=== PATIENT | male | born 1945 | race Caucasian/White ===

== ENCOUNTER 2018-12-08 05:52 | Day surgery (SDC) | payer OTHER ==
[~2018-12-08 05:52] MED LIST: Buffered Lidocaine 1% SYRIN* 1 ML/SYRINGE INTRADERM ONE
[2018-12-08] MEDS ORDERED: Lactated Ringers 1000 ML Bag* 1,000 ML IV SCH (06:00)
[2018-12-08] MEDS ORDERED: Dexamethasone IV* 4 MG/ML 1 ML (4 MG) IV SLOW PU ONE (06:00)
[2018-12-08] MEDS ORDERED: Famotidine TAB* 20 MG PO ONE (06:00)
[2018-12-08] MEDS ORDERED: Famotidine TAB* 20 MG ONE (06:07)
[2018-12-08] MEDS ORDERED: ceFAZolin 2 GM in NS PREMIX(*) 2 GM/100 ML BAG IVPB ONE (06:07)
[2018-12-08] MEDS ORDERED: Dexamethasone IV* 4 MG/ML 1 ML (4 MG) ONE (06:07)
[2018-12-08] MEDS ORDERED: Lidocaine 1% INJ* 10 MG/ML 30 ML SDV ONE (07:15)
[2018-12-08] MEDS ORDERED: fentaNYL* 50 MCG/ML 2 ML VIAL (100 MCG VIAL) ONE (07:17)
[2018-12-08] MEDS ORDERED: Midazolam* 1 MG/ML 2 ML VIAL (2 MG) ONE (07:17)
[2018-12-08] MEDS ORDERED: Propofol* 10 MG/ML 20 ML BTL ONE (07:18)
[2018-12-08] MEDS ORDERED: oxyCODONE/Acetamin 5/325 MG* TAB PO PRN (07:27)
[2018-12-08] MEDS ORDERED: Acetaminophen TAB* 325 MG PO PRN (07:27)
[2018-12-08] MEDS ORDERED: Naloxone* 0.4 MG/ML 1 ML VIAL IV PRN (07:27)
[2018-12-08] MEDS ORDERED: Ondansetron INJ* 2 MG/ML VIAL IV PRN (07:27)
[2018-12-08] MEDS ORDERED: fentaNYL* 50 MCG/ML 2 ML VIAL (100 MCG VIAL) IV PRN (07:27)
[2018-12-08 09:53] VITALS: BP 133/81
--- NOTE | 2018-12-08 12:54 | OP ---
CC: Dr. Whitmore; Dr. Olson; Dr. Shaffer* OPERATIVE REPORT: DATE OF OPERATION: 12/08/18 - [facility] DATE OF : 47 SURGEON: Yusef Whitmore MD [place] SUPERVISOR: None. ANESTHESIOLOGIST: Dr. Hoff. ANESTHESIA: LMAC anesthesia. PRE-OP DIAGNOSIS: Carcinoma of the lung. POST-OP DIAGNOSIS: Carcinoma of the lung. OPERATIVE PROCEDURE: Placement of left subclavian 8-Wolof PowerPort. DESCRIPTION OF PROCEDURE: The patient was in supine on the operating table. After adequate intravenous sedation, compression stockings, Ted Hugger warmer and intravenous antibiotics, the left chest and neck region were prepped with antiseptic and draped in sterile fashion. Local infiltrative anesthesia was administered. Approximately 3 cm incision was created. Inferior pocket was created. Subclavian venipuncture was carried out. Guidewire was passed under fluoroscopic guidance. Peel-Away introducer was used to deliver the catheter, which was measured under fluoroscopy and cut to 28 cm, attached to the port which was sutured in the pocket with 2-0 Prolene. Pocket was closed with 3-0 and 5-0 Vicryl followed by Steri-Strips. Port was accessed. There was good blood return. It was flushed with heparinized saline solution followed by Tegaderm dressing. He tolerated the procedure well and was brought to recovery in good condition. No complications. No drains. No pathologic specimens. Sponge and instrument counts correct. Estimated blood loss 10 mL. [id number]/CPS #: [id number] [facility]
== END 2018-12-08 10:19 | disposition home or self-care (01) ==
LOC: OR 05:52
PROVIDERS: ATTEND Surgery
DX: C34.81 Malignant neoplasm of overlapping sites of right bronchus and lung (principal); Z87.891 Personal history of nicotine dependence; I25.2 Old myocardial infarction; Z95.5 Presence of coronary angioplasty implant and graft; I10 Essential (primary) hypertension; E78.5 Hyperlipidemia, unspecified; I25.10 Atherosclerotic heart disease of native coronary artery without angina pectoris; F41.8 Other specified anxiety disorders
CPT/HCPCS: 71045; A9270-GY; C1788; J0690; J1100; J1642; J2250; J2704; J3010

== ENCOUNTER 2019-07-12 17:08 | Emergency (ER) | payer OTHER ==
[2019-07-12] MEDS ORDERED: NS 0.9% 1000 ML** 1,000 ML IV.FLUID IV ONE (17:47)
[2019-07-12] MEDS ORDERED: Acetaminophen TAB* 325 MG PO ONE (17:47)
--- NOTE | 2019-07-12 17:58 | ED ---
HPI Febrile Illness - HPI Summary HPI Summary: Patient is a 73 year old male with a history of lung cancer who presents with fever x 2 days. The patient last had chemotherapy Wednesday afternoon. Wednesday evening the daughter noted a fever of 102F and gave him 500 mg Tylenol, which reduced the fever. The patient was afebrile Wednesday. Today, the daughter noticed fevers again and has been giving Tylenol and decided to bring him to the ED after speaking to patient's PCP. The patient has had a decreased appetite , headache, weakness and fatigue for the past couple days. He denies dysuria, hematuria, abdominal pain, vomiting, diarrhea. Denies SOB, chest pain. The daughter states that she has young children at home who have had upper respiratory symptoms. oncologist is dr oleary. - History of Current Complaint Chief Complaint: EDFever Time Seen by Provider: 07/12/19 17:46 Pain Intensity: 4 - Allergy/Home Medications Allergies/Adverse Reactions: Allergies Allergy/AdvReac Type Severity Reaction Status Date / Time No Known Allergies Allergy Verified 06/09/19 08:53 Home Medications: Home Medications Gabapentin CAP(*) [Neurontin 100 mg CAP(*)] 100 mg PO TID PRN 07/12/19 [History Confirmed 07/12/19] PMH/Surg Hx/FS Hx/Imm Hx Endocrine/Hematology History: Denies: Hx Diabetes Cardiovascular History: Reports: Hx Coronary Artery Disease, Hx Hypertension Denies: Hx Pacemaker/ICD Respiratory History: Reports: Hx Lung Cancer, Hx Pulmonary Edema - new with lung cancer, Other Respiratory Problems/Disorders - new diagnosis- lung cancer History: Reports: Hx Renal Disease - cysts per family, Other Problems/ Disorders - cyst on kidneys- no problems Denies: Hx Dialysis, Hx Kidney Stones Sensory History: Denies: Hx Contacts or Glasses, Hx Hearing Aid Opthamlomology History: Denies: Hx Contacts or Glasses Psychiatric History: Reports: Hx Depression - d/t new dx of cancer Denies: Hx Panic Disorder - Cancer History Cancer Type, Location and Year: LUNG CA Hx Chemotherapy: No - Surgical History Surgery Procedure, Year, and Place: Cardiac catherization with 5 stents 2013 Hx Anesthesia Reactions: No Infectious Disease History: No Infectious Disease History: Denies: Traveled Outside the [place] in Last 30 Days - Family History Known Family History: Positive: Non-Contributory - Social History Alcohol Use: None Substance Use Type: Reports: None Smoking Status (MU): Former Smoker Review of Systems Positive: Fever, Chills Eyes: Negative ENT: Negative Cardiovascular: Negative Respiratory: Negative Positive: Nausea, Other - decreased appetite Genitourinary: Negative Musculoskeletal: Negative Skin: Negative Positive: Headache, Weakness Psychological: Normal All Other Systems Reviewed And Are Negative: Yes Physical Exam Triage Information Reviewed: Yes Vital Signs On Initial Exam: Initial Vitals Temp Pulse Resp BP Pulse Ox 102.4 F 97 16 92/54 98 07/12/19 17:12 07/12/19 17:12 07/12/19 17:12 07/12/19 17:12 07/12/19 17:12 Vital Signs Reviewed: Yes Appearance: Positive: Well-Appearing, No Pain Distress, Well-Nourished Skin: Positive: Warm, Skin Color Reflects Adequate Perfusion, Dry Head/Face: Positive: Normal Head/Face Inspection Eyes: Positive: Normal, EOMI, LARA, Conjunctiva Clear ENT: Positive: Normal ENT inspection, Pharynx normal, TMs normal Neck: Positive: Supple, Nontender, No Lymphadenopathy. Negative: Nuchal Rigidity Respiratory/Lung Sounds: Positive: Clear to Auscultation, Breath Sounds Present Cardiovascular: Positive: Normal, RRR, Pulses are Symmetrical in both Upper and Lower Extremities, S1, S2 Abdomen Description: Positive: Nontender, Soft Bowel Sounds: Positive: Present Musculoskeletal: Positive: Other - 1+ bilateral lower extremity edema Neurological: Positive: Normal Psychiatric: Positive: Normal, Affect/Mood Appropriate Procedures - Sedation Patient Received Moderate/Deep Sedation with Procedure: No Diagnostics - Vital Signs Vital Signs Temp Pulse Resp BP Pulse Ox 07/12/19 17:12 102.4 F 97 16 92/54 98 - Laboratory Result Diagrams: 07/12/19 18:23 07/12/19 18:23 Lab Statement: Any lab studies that have been ordered have been reviewed, and results considered in the medical decision making process. - Radiology chest Radiology Interpretation Completed By: ED Physician Summary of Radiographic Findings: no pneumonia - EKG No standard instances Cardiac Rate: NL EKG Rhythm: Sinus Rhythm Summary of EKG Findings: sinus rhythm Re-Evaluation - Re-Evaluation First Eval Re-Evaluation Time: 20:35 Change: Unchanged Comment: feeling very weak Second Eval Re-Evaluation Time: 21:18 Change: Improved Comment: feeling better, wants to go home Course/Dx - Course Course Of Treatment: 73 year old male with a history of lung cancer presents with 2 days of fever. Last chemotherapy treatment Wednesday. Patient admits to weakness, fatigue, chills, and a headache. Has been around grandchildren who have URI symptoms. Lungs CTA. Abdomen soft, non-tender. wbc normal. sodium 131. crp elevated. chest xray no pneumonia preliminary. gave zosyn and fluids with fever and low blood pressure. discussed with dr jaquez who things that this has nothing to do with chemo so if patient is feeling well can be discharge if not should be admitted. after fluids and tyenlol patient feeling better. patient would like to be discharged. warned symptoms return to ED for. told follow up with oncology. patient understand and agrees with plan. - Febrile Illness Differential Diagnoses: Fever of Unknown Origin, Neoplasm, Sepsis - Diagnoses Provider Diagnoses: Fever Discharge ED - Sign-Out/Discharge Documenting (check all that apply): Patient Departure - Discharge Plan Condition: Good Disposition: HOME Patient Education Materials: Viral Syndrome (ED) Referrals: Ajit Olson MD [Primary Care Provider] - Da Jaquez MD [Medical Doctor] - Additional Instructions: take tyenlol every 4 hours drink plenty of fluids Follow up with oncology Return to ED if develop any new or worsening symptoms - Billing Disposition and Condition Condition: GOOD Disposition: Home
[2019-07-12] MEDS ORDERED: Piperacillin/Tazobac ADVAN(*) 3.375 GM in NS 0.9% 100 ML* 100 ML IVPB ONE (18:13)
[2019-07-12 18:31] LABS: ABS Lymphocytes 0.3 10^3/ul (1.0-4.8); ABS Monocytes 0.1 10^3/ul (0-0.8); ABS Neutrophils 4.4 10^3/ul (1.5-7.7); Eosinophil % 0.2 %; Hematocrit 30 % (42-52); Hemoglobin 10.1 g/dL (14.0-18.0); Lymphocyte % 5.8 %; Mean Corpuscular HGB Conc 33 g/dL (31-36); Mean Corpuscular Hemoglobin 27 pg (27-31); Mean Corpuscular Volume 82 fL (80-94); Mean Platelet Volume 7.3 fL (7.4-10.4); Nucleated Red Blood Cells % 0.1; Platelet Count 194 10^3/uL (150-450); Red Blood Count 3.68 10^6 /uL (4.18-5.48); Red Cell Distribution Width 15 % (10-15); White Blood Count 4.7 10^3/uL (3.5-10.8)
[2019-07-12 18:38] LABS: Activated Partial Thrombo Time 36.1 seconds (26.0-38.0); INR 1.19 (0.82-1.09)
[2019-07-12 18:46] LABS: Influenza A Molecular NEGATIVE (Negative); Influenza B Molecular NEGATIVE (Negative)
[2019-07-12 18:50] LABS: Albumin 3.4 g/dL (3.2-5.2); BUN/Creatinine Ratio 16.1 (8-20); C Reactive Protein 80.91 mg/L (<8.01); EGFR African American 96.6 (>60); EGFR Non-African American 79.9 (>60); Globulin 3.4 g/dL (2-4); Potassium 3.9 mmol/L (3.5-5.0); Total Bilirubin 0.5 mg/dL (0.2-1.0); Total Protein 6.8 g/dL (6.4-8.9)
[2019-07-12 18:52] LABS: Troponin I 0.01 ng/mL (<0.03)
[2019-07-12 19:49] LABS: Urine Appearance Clear; Urine Bilirubin Negative (Negative); Urine Blood 1+ (Negative); Urine Color Yellow; Urine Glucose Negative (Negative); Urine Ketones Negative (Negative); Urine Nitrite Negative (Negative); Urine Protein Negative (Negative); Urine Specific Gravity 1.017 (1.010-1.030); Urine Urobilinogen Negative (Negative)
[2019-07-12 19:54] LABS: Urine Bacteria Absent (Absent); Urine Red Blood Cell Trace(0-2/hpf) (Absent); Urine Squamous Epithelial Cell Present (Absent); Urine White Blood Cell Trace(0-5/hpf) (Absent)
[2019-07-12 21:33] VITALS: BP 103/57
== END 2019-07-12 21:25 | disposition home or self-care (01) ==
LOC: ED 17:08
DX: R50.9 Fever, unspecified (principal); C34.90 Malignant neoplasm of unspecified part of unspecified bronchus or lung; I25.10 Atherosclerotic heart disease of native coronary artery without angina pectoris; I10 Essential (primary) hypertension; Z95.5 Presence of coronary angioplasty implant and graft; Z87.891 Personal history of nicotine dependence
CPT/HCPCS: 36415; 71046; 80053; 81003; 81015; 83605; 83880; 84484; 85025; 85610; 85730; 86140; 87040; 87086; 93005; 96361; 96365; 99284; A9270-GY; J2543